=== PATIENT | male | born 1995 | race Caucasian/White ===

== ENCOUNTER 2016-11-14 11:02 | Emergency (ER) | payer OTHER ==
[2016-11-14] MEDS ORDERED: LORazepam 2 MG/ML INJ IVP ONE (11:34)
--- NOTE | 2016-11-14 11:35 | CPEKG ---
Heart Rate: 50 RR Interval: 1200 P-R Interval: 148 QRSD Interval: 94 QT Interval: 424 QTC Interval: 387 P Kaufman: 58 QRS Kaufman: 63 T Wave Kaufman: 47 EKG Severity - NORMAL ECG - EKG Impression: SINUS RHYTHM Electronically Signed By: Imelda Payton 14-Nov-2016 14:48:35
--- NOTE | 2016-11-14 11:39 | EDPHY ---
H & P Stated Complaint: CP since last night 11pm, post taking his vivance and using MJ. Time Seen by Provider: 11/14/16 11:29 HPI/ROS: CHIEF COMPLAINT: Chest pain, dyspnea post Red Bull and Vyvanse ingestion HISTORY OF PRESENT ILLNESS: 21-year-old male states that yesterday evening came from work he ingested one of his brother's Vyvanse tablets and drank a Red Bull in order to study, complaining of dyspnea, chest pain, anxiety since last evening. No chest pain with exertion. No dyspnea with exertion. No methamphetamine use. No family history of premature coronary artery disease. No personal history of premature coronary artery disease. No family history of vasculopathy. REVIEW OF SYSTEMS: A ten point review of systems was performed and is negative with the exception of the items mentioned in the HPI PAST MEDICAL & SURGICAL HISTORY: No pertinent medical or surgical history SOCIAL HISTORY:nonsmoker. No methamphetamine or cocaine use. FAMILY HISTORY: No family history of premature coronary artery disease or vasculopathy PHYSICAL EXAM (Prior to examination, patient consented to physical exam, hands were washed and my usual and customary physical exam procedures followed) 1) GENERAL: Well-developed, well-nourished, alert and oriented. Appears anxious , tearful 2) HEAD: Normocephalic, atraumatic 3) HEENT: Pupils equal, round, reactive to light bilaterally. Sclera anicteric. 4) NECK: Full range of motion, no meningeal signs. 5) LUNGS: Clear auscultation bilaterally, no wheezes, no rhonchi, no retractions. 6) HEART: Regular rate and rhythm, no murmur, no heave, no gallop. 7) ABDOMEN: No guarding, no rebound, no focal tenderness,, 8) MUSCULOSKELETAL: No peripheral edema or discoloration. 9) BACK: no obvious trauma, no visual or palpable abnormality. 10) SKIN: No rash, no petechiae. 11) Psychiatric: Patient is oriented X 3, there is no agitation. DIFFERENTIAL DIAGNOSIS: in no particular include but limited to pneumothorax, pulmonary embolus, polysubstance abuse - Personal History Current Tetanus/Diphtheria Vaccine: Yes Current Tetanus Diphtheria and Acellular Pertussis (TDAP): Yes - Medical/Surgical History Hx Asthma: No Hx Chronic Respiratory Disease: No Hx Diabetes: No Hx Cardiac Disease: No Hx Renal Disease: No Hx Cirrhosis: No Hx Alcoholism: No Hx HIV/AIDS: No Hx Splenectomy or Spleen Trauma: No Other PMH: pmh:taking someone elses vivance. psh:none - Social History Smoking Status: Never smoked Constitutional: Initial Vital Signs Temperature (C) 36.6 C 11/14/16 11:15 Heart Rate 64 11/14/16 11:15 Respiratory Rate 16 11/14/16 11:15 Blood Pressure 123/59 H 11/14/16 11:15 O2 Sat (%) 100 11/14/16 11:15 O2 Delivery Mode Room Air Medical Decision Making - Diagnostics Imaging Results: Imaging Impressions Chest X-Ray 11/14/16 11:39 Impression: No acute abnormality. Images reviewed myself ED Course/Re-evaluation: Patient re-evaluated with serial examinations. Given IV Ativan re-evaluated most recently at 12:13 p.m.. Doubt cardiac arrhythmia, doubt PE, doubt pneumothorax. Discussed the more than likely etiology of symptoms as the combination of non prescribed Vyvanse combined with Red Bull drink. Recommended against similar in the future. Plan will be discharge home. He feels significant improvement. Care of patient under supervision of secondary supervising physician Dr Payton . - Data Points Medications Given: Discontinued Medications Lorazepam (Ativan Injection) 1 mg IVP EDNOW ONE Stop: 11/14/16 11:35 Last Admin: 11/14/16 11:41 Dose: 1 mg Departure - Departure Disposition: Home, Routine, Self-Care Clinical Impression: Anxiety Condition: Good Instructions: Anxiety (ED) Additional Instructions: Do not take medications which are not prescribed you. Use caution with energy drinks Referrals: CRISTINA Stout,. [Clinic] - 1-2 days without fail
[2016-11-14 13:16] VITALS: BP 127/74; PULSE 61; RESP 18; TEMP 98.8; O2SAT 97
== END 2016-11-14 13:14 | disposition home or self-care (01) ==
DX: F41.9 Anxiety disorder, unspecified (principal)
CPT/HCPCS: 96374; J2060

== ENCOUNTER 2016-11-16 23:41 | Emergency (ER) | payer OTHER ==
[2016-11-16 23:59] VITALS: RESP 16; TEMP 97.7
--- NOTE | 2016-11-17 00:17 | CPEKG ---
Heart Rate: 59 RR Interval: 1017 P-R Interval: 152 QRSD Interval: 98 QT Interval: 408 QTC Interval: 405 P Glenwood: 56 QRS [place]wood: 48 T Wave Glenwood: 43 EKG Severity - NORMAL ECG - EKG Impression: SINUS RHYTHM Electronically Signed By: Kami Catherine 17-Nov-2016 05:34:58
[2016-11-17] MEDS ORDERED: LORazepam 1 MG TAB PO ONE (00:49)
[2016-11-17 01:12] LABS: % IMMATURE GRANULYOCYTES 0.2 % (0.0-1.1); ABSOLUTE IMMATURE GRANULOCYTES 0.02 10^3/uL (0.00-0.10); ADD DIFF? NO; ADD MORPH? NO; ADD SCAN? NO; ATYPICAL LYMPHOCYTE FLAG 10 (0-99); FRAGMENT RBC FLAG 0 (0-99); HEMATOCRIT 45.8 % (40.0-51.0); HEMOGLOBIN 16.4 g/dL (13.7-17.5); LEFT SHIFT FLG 0 (0-99); LIPEMIA HEMOLYSIS FLAG 90 (0-99); MEAN CELL HEMOGLOBIN 33.6 pg (27.9-34.1); MEAN CELL HEMOGLOBIN CONCENTR. 35.8 g/dL (32.4-36.7); MEAN CELL VOLUME 93.9 fL (81.5-99.8); MEAN PLATELET VOLUME 9.6 fL (8.7-11.7); PLATELET CLUMPS FLAG 10 (0-99); PLATELET COUNT 228 10^3/uL (150-400); RED BLOOD CELL COUNT 4.88 10^6/uL (4.40-6.38); RED CELL DISTRIBUTION WIDTH 11.9 % (11.5-15.2)
[2016-11-17 01:48] LABS: ANION GAP 12 mEq/L (8-16); CALCIUM 9.4 mg/dL (8.5-10.4); CARBON DIOXIDE 24 mEq/l (22-31); CHLORIDE 105 mEq/L (97-110); GLOMERULAR FILTRATION RATE > 60; GLUCOSE 100 mg/dL (70-100); POTASSIUM 4.1 mEq/L (3.5-5.2); SODIUM 141 mEq/L (134-144)
[2016-11-17 01:51] LABS: TROPONIN I 0.018 ng/mL (0.000-0.034)
--- NOTE | 2016-11-17 01:59 | EDPHY ---
H & P Stated Complaint: CP, lightheaded Time Seen by Provider: 11/17/16 00:38 HPI/ROS: HPI The patient presents with chest pain which has been persistent for the last 2 days. He was seen in the emergency room several days ago for this and his chest pain began after taking Vyvanse and a red dull. However, his pain persists, it is in his mid chest and has been fairly constant. It is a sore sensation that he feels deep in his chest. He does not have any associated nausea, vomiting, dizziness, diaphoresis, shortness of breath. He does not have any leg swelling, recent travel. He does say that his mother had a DVT of some sort. He drinks about 1 cup of coffee a day and this is not changed recently. He does report more stress in his life in general had wonders if he is having an anxiety attack. REVIEW OF SYSTEMS Constitutional: No fever, no chills. Eyes: No discharge. ENT: No sore throat. Cardiovascular: Positive for chest pain, no palpitations. Respiratory: No cough, no shortness of breath. Gastrointestinal: No abdominal pain, no vomiting. Genitourinary: No hematuria. Musculoskeletal: No back pain. Skin: No rashes. Neurological: No headache. PMHx: Healthy Soc Hx: College student PHYSICAL General Appearance: Alert, no distress Eyes: Pupils equal and round no pallor or injection ENT, Mouth: Mucous membranes moist Respiratory: There are no retractions, lungs are clear to auscultation Cardiovascular: Regular rate and rhythm Gastrointestinal: Abdomen is soft and non-tender, no masses, bowel sounds normal Neurological: A&O, moves all extremities Skin: Warm and dry, no rashes Musculoskeletal: Neck is supple non tender Extremities: symmetrical, full range of motion Psychiatric: Patient is oriented X 3, there is no agitation Source: Patient Exam Limitations: No limitations - Personal History Current Tetanus/Diphtheria Vaccine: Yes - Medical/Surgical History Hx Asthma: No Hx Chronic Respiratory Disease: No Hx Diabetes: No Hx Cardiac Disease: No Hx Renal Disease: No Hx Cirrhosis: No Hx Alcoholism: No Hx HIV/AIDS: No Hx Splenectomy or Spleen Trauma: No Other PMH: pmh: taking someone elses vyvanse. psh: none - Social History Smoking Status: Never smoked Constitutional: Initial Vital Signs Temperature (C) 36.5 C 11/16/16 23:56 Heart Rate 69 11/16/16 23:56 Respiratory Rate 16 11/16/16 23:56 Blood Pressure 109/90 H 11/16/16 23:56 O2 Sat (%) 96 11/16/16 23:56 O2 Delivery Mode Room Air Allergies/Adverse Reactions: No Known Allergies Allergy (Unverified 11/16/16 23:56) Home Medications: Medication Instructions Recorded NK [No Known Home Meds] 11/16/16 Medical Decision Making - Diagnostics EKG Interpretation: EKG: Complete interpretation has been separately recorded in the [facility] archive. Summary impression: Normal sinus rhythm Imaging Results: Chest x-ray two view shows no cardiomegaly, no effusion, no pneumonia, interpreted by me, radiology interpretation is pending. Differential Diagnosis: This is a healthy 21-year-old man who presents with 2 days of chest pain initially in the setting of using stimulant and caffeine, however now symptoms persist. Recent workup includes chest x-ray and EKG which were unremarkable. Given family history of DVT, I will check a D-dimer and other basic laboratories. Differential diagnosis includes pulmonary embolism, myocarditis, pericarditis, pleural effusion, pneumonia, GERD, anxiety attack. The patient's labs and studies were all unremarkable. He felt a bit better after receiving a single dose of Ativan by mouth here. I feel he most likely is suffering from anxiety attack. I doubt any serious pathology at this time. He can be safely discharged back home with follow up at the [facility]. - Data Points Laboratory Results: Laboratory Results 11/17/16 01:07 11/17/16 01:07 11/17/16 11/17/16 11/17/16 01:07 01:07 01:07 WBC 8.25 10^3/uL 10^3/uL (3.80-9.50) RBC 4.88 10^6/uL 10^6/uL (4.40-6.38) Hgb 16.4 g/dL g/dL (13.7-17.5) Hct 45.8 % % (40.0-51.0) MCV 93.9 fL fL (81.5-99.8) MCH 33.6 pg pg (27.9-34.1) MCHC 35.8 g/dL g/dL (32.4-36.7) RDW 11.9 % % (11.5-15.2) Plt Count 228 10^3/uL 10^3/uL (150-400) MPV 9.6 fL fL (8.7-11.7) Neut % (Auto) 51.0 % % (39.3-74.2) Lymph % (Auto) 36.6 % % (15.0-45.0) Pine % (Auto) 9.1 % % (4.5-13.0) Eos % (Auto) 2.9 % % (0.6-7.6) Baso % (Auto) 0.2 % L % (0.3-1.7) Nucleat RBC Rel Count 0.0 % % (0.0-0.2) Absolute Neuts (auto) 4.20 10^3/uL 10^3/uL (1.70-6.50) Absolute Lymphs (auto) 3.02 10^3/uL H 10^3/uL (1.00-3.00) Absolute Monos (auto) 0.75 10^3/uL 10^3/uL (0.30-0.80) Absolute Eos (auto) 0.24 10^3/uL 10^3/uL (0.03-0.40) Absolute Basos (auto) 0.02 10^3/uL 10^3/uL (0.02-0.10) Absolute Nucleated RBC 0.00 10^3/uL 10^3/uL (0-0.01) Immature Gran % 0.2 % % (0.0-1.1) Immature Gran # 0.02 10^3/uL 10^3/uL (0.00-0.10) D-Dimer < 0.27 ug/mLFEU ug/mLFEU (0.00-0.50) Sodium 141 mEq/L mEq/L (134-144) Potassium 4.1 mEq/L mEq/L (3.5-5.2) Chloride 105 mEq/L mEq/L (97-110) Carbon Dioxide 24 mEq/l mEq/l (22-31) Anion Gap 12 mEq/L mEq/L (8-16) BUN 13 mg/dL mg/dL (7-23) Creatinine 1.0 mg/dL mg/dL (0.7-1.3) Estimated GFR > 60 Glucose 100 mg/dL mg/dL (70-100) Calcium 9.4 mg/dL mg/dL (8.5-10.4) Troponin I 0.018 ng/mL ng/mL (0.000-0.034) Medications Given: Discontinued Medications Lorazepam (Ativan) 1 mg PO EDNOW ONE Stop: 11/17/16 00:50 Last Admin: 11/17/16 01:28 Dose: 1 mg Departure - Departure Disposition: Home, Routine, Self-Care Clinical Impression: Chest pain Qualifiers: Chest pain type: unspecified Qualified Code(s): R07.9 - Chest pain, unspecified Condition: Good Instructions: Noncardiac Chest Pain (ED) Additional Instructions: You should return to the emergency department if your worse in any way. [facility] would [facility]. It is possible your chest pain is related to anxiety. Referrals: [facility]ST[facility] Stout,. [Clinic] - As per Instructions
[2016-11-17 02:08] VITALS: BP 120/60; PULSE 55; O2SAT 97
== END 2016-11-17 02:07 | disposition home or self-care (01) ==
DX: R07.9 Chest pain, unspecified (principal)